=== PATIENT | male | born 2000 | race Two or more races ===

== ENCOUNTER 2022-05-26 18:16 | Emergency (ER) | payer SELFPAY ==
[~2022-05-26] VITALS: Ht 170.2 cm; Wt 68.0 kg
[2022-05-26 18:25] VITALS: BP 149/86
[2022-05-26] MEDS ORDERED: CLIN-194 MT (20:52)
[2022-05-26] MEDS ORDERED: IBUP-2029 MT (20:52)
[2022-05-26] MEDS ORDERED: IBUPROFEN 600MG TABLET PO ONE (21:00)
[2022-05-26] MEDS ORDERED: IBUPROFEN 600MG TABLET PO NR (23:15)
== END 2022-05-26 23:52 | disposition home or self-care (01) ==
LOC: ER 18:46
DX: K08.89 Other specified disorders of teeth and supporting structures (principal)
CPT/HCPCS: 99281